=== PATIENT | female | born 1940 | race Caucasian/White ===

== ENCOUNTER 2020-04-12 15:10 | Inpatient (IN) | payer MEDICARE ==
[2020-04-12] VITALS (7 sets, daily range): BP systolic 100–121; BP diastolic 36–59
[~2020-04-12] VITALS: Ht 172.7 cm; Wt 92.5 kg
[~2020-04-12 15:10] MED LIST: ANTIVERT/2525 MG PO; ANTIVERT25 MG; ANTIVERT25 MG PO; ASPIRIN ADULT L81 M1 PO; BISOPROLOL/HCTZ1 TA4 PO; CIPRO250 MG PO; CIPROFLOXACIN500 MG PO; CLONIDINE HCL0.1 MG PO; D3 VITAMIN400 IU/ML; GLYBURIDE5 MG PO; KEFLEX500 MG PO; LABETALOL200 MG PO; LOPID600 MG; MACROBID100 M1 PO; METFORMIN1000 MG; MICRO-K8 MEQ PO; Vibra-Tab100 MG PO; Zofran4 MG PO; [UNRECOGNIZED DRUG - OTHER]
[2020-04-12 15:37] LABS: HEMATOCRIT 21.8 % (37.0-47.0); MEAN CELL VOLUME 118.5 fl (81.0-99.0); MEAN CORPUSCULAR HGB 38.6 pg (27.0-31.0); MEAN CORPUSCULAR HGB CONC 32.6 g/dl (33.0-37.0); MEAN PLATELET VOLUME 9.9 fl (9.6-12.3); PLATELET COUNT AUTOMATED 199 10*3/uL (130-400); RED BLOOD COUNT 1.84 10*6/uL (4.10-5.10); RED CELL DISTRI WIDTH 15.9 % (0-14.5); WHITE BLOOD COUNT 6.5 10*3/uL (4.8-10.8)
[2020-04-12 15:48] LABS: ACT PARTIAL THROMBO TIME 28.5 SECONDS (20.0-32.1)
[2020-04-12 15:53] LABS: BURR CELLS FEW; PLATELET SUFFICIENCY NORMAL (NORMAL); POLYCHROMASIA SLIGHT; SCHISTOCYTES FEW; TOTAL CELLS COUNTED 100 #CELLS
[2020-04-12 15:54] LABS: ALBUMIN 3.4 gm/dl (3.1-4.5); CREATININE 1.25 mg/dL (0.55-1.02); POTASSIUM 3.2 mmol/L (3.5-5.1); ROULEAUX MODERATE; TOTAL PROTEIN 6.8 gm/dL (6.4-8.2)
[2020-04-12 16:06] LABS: TROPONIN I 0.064 ng/ml (<0.045)
--- NOTE | 2020-04-12 16:36 | NUR ---
HOME MEDICATIONS VERIFIED WITH [facility]
[2020-04-12 18:02] LABS: IRON 50 ug/dL (50-170); TOTAL IRON BINDING CAPACITY 346 ug/dl (250-450)
--- NOTE | 2020-04-12 18:30 | NUR ---
The assessment has been completed. MONA CROCKER Time: 1829 A 79 year old FEMALE admitted to under services of KEHINDE SIMON DO. Pt. arrived via ambulance from ER. Chief complaint: VIA EMS FROM HOME FOR C/O OF GEN WEAKNESS AND LIGHTHEADEDNESS. BS 78. . MONA CROCKER
[2020-04-12 18:50] LABS: BILIRUBIN 1+ (NEGATIVE); BLOOD 2+ (NEGATIVE); CLARITY CLOUDY (CLEAR); COLOR YELLOW (YELLOW); GLUCOSE NEGATIVE (NEGATIVE); KETONE NEGATIVE (NEGATIVE); LEUKO ESTERASE 2+ (NEGATIVE); NITRITE NEGATIVE (NEGATIVE); SPECIFIC GRAVITY 1.025 (1.005-1.030); UROBILINOGEN 0.2 E.U./dl (0.2-1.0)
[2020-04-12 18:52] LABS: BACTERIA 4+; MUCOUS 1+; WBC TNTC wbc/hpf (0-5)
--- NOTE | 2020-04-12 19:00 | NUR ---
REPORT RECEIVED, PT LYING IN BED. NO COMPLAINTS VOICED. CALL LIGHT IN REACH
--- NOTE | 2020-04-12 20:00 | NUR ---
IN TO SEE PT. PT IV OUT AND BLEEDING. PT IV INFUSION STOPPED. IV DISCONTINUED. PT REFUSING BSG CHECK AT THIS TIME. NEW IV SITE IN PT RIGHT ARM STARTED BY ASHLIE SMITH AFTER 1 FAILED ATTEMPT. PT IV MAG HOOKED UP AND INFUSING AT THIS TIME. NO COMPLAINTS VOICED. CALL LIGHT IN REACH
--- NOTE | 2020-04-12 20:26 | NUR ---
DR. CHAPA CONTACTED FOR LACTIC OF 2.4 AND TROPONIN OF 0.042.
--- NOTE | 2020-04-12 22:10 | NUR ---
BLOOD INITIATED AT THIS TIME.
--- NOTE | 2020-04-12 23:12 | NUR ---
DR. CHAPA NOTIFIED OF LACTIC ACID 2.7 AND TROPONIN 0.047. ALSO NOTIFIED THAT PER PT IS PEEING FREQUENTLY. NO NEW ORDERS AT THIS TIME. CALL LIGHT IN REACH
[2020-04-13 00:25] VITALS: BP 118/52
--- NOTE | 2020-04-13 00:30 | NUR ---
BLOOD FINISHED AT THIS TIME
[2020-04-13 01:00] VITALS: BP 114/53
[2020-04-13 02:41] LABS: HEMATOCRIT 25.8 % (37.0-47.0); MEAN CORPUSCULAR HGB 36.2 pg (27.0-31.0); MEAN CORPUSCULAR HGB CONC 32.2 g/dl (33.0-37.0); PLATELET COUNT AUTOMATED 198 10*3/uL (130-400); RED BLOOD COUNT 2.29 10*6/uL (4.10-5.10); RED CELL DISTRI WIDTH 20.5 % (0-14.5); WHITE BLOOD COUNT 4.9 10*3/uL (4.8-10.8)
[2020-04-13 03:00] LABS: MEAN CELL VOLUME 112.7 fl (81.0-99.0)
[2020-04-13 03:03] LABS: TOTAL CELLS COUNTED 100 #CELLS
[2020-04-13 03:04] LABS: BURR CELLS MODERATE; PLATELET SUFFICIENCY NORMAL (NORMAL)
--- NOTE | 2020-04-13 03:08 | NUR ---
DR. CHAPA NOTIFIED OF HGB 8.3. NO NEED FOR ANOTHER UNIT OF BLOOD AT THIS TIME.
[2020-04-13 05:57] LABS: HEMATOCRIT 24.8 % (37.0-47.0); MEAN CELL VOLUME 111.2 fl (81.0-99.0); MEAN CORPUSCULAR HGB 35.9 pg (27.0-31.0); MEAN CORPUSCULAR HGB CONC 32.3 g/dl (33.0-37.0); MEAN PLATELET VOLUME 10.4 fl (9.6-12.3); PLATELET COUNT AUTOMATED 201 10*3/uL (130-400); RED BLOOD COUNT 2.23 10*6/uL (4.10-5.10); RED CELL DISTRI WIDTH 20.8 % (0-14.5); WHITE BLOOD COUNT 4.4 10*3/uL (4.8-10.8)
[2020-04-13 06:13] LABS: ALBUMIN 3.1 gm/dl (3.1-4.5); CREATININE 1.1 mg/dL (0.55-1.02); POTASSIUM 3.9 mmol/L (3.5-5.1)
[2020-04-13 06:18] LABS: ACT PARTIAL THROMBO TIME 27.9 SECONDS (20.0-32.1)
[2020-04-13 06:19] LABS: FREE T4 0.76 ng/dl (0.76-1.46); THYROID STIM HORMONE (HS) 0.697 uIU/ml (0.358-4.75); TOTAL PROTEIN 6.4 gm/dL (6.4-8.2)
[2020-04-13 06:43] LABS: TOTAL CELLS COUNTED 100 #CELLS
[2020-04-13 06:44] LABS: PLATELET SUFFICIENCY NORMAL (NORMAL)
[2020-04-13 07:30] LABS: VITAMIN D, 25-HYDROXY 49.6 ng/mL (30-100)
[2020-04-13 08:00] VITALS: BP 108/48
--- NOTE | 2020-04-13 08:47 | NUR ---
Bioinformatics Engineer in to talk to patient. Patient states lives at home with alone. There are 14 steps in the home. Physician: Manuel [facility]: none Patient's level of ADLs: INDEPENDENT Patient has working utilities: yes DME: none Follow-up physician's appointment after d/c: will be made by hospitalist nurse director Does patient want to access PORTAL?: no Discharge plan Patient lives in an apartment building on [address]. She stated although she lives on the first floor, she blair in the garage and goes up about 14 steps to get to her apartment. She doesn't have any DME or oxygen at home. Discharge plan is to return to home, patient denies any needs at this time.. EVANGELISTA VILLELA
--- NOTE | 2020-04-13 10:00 | NUR ---
PT AWAKE, ALERT, & ORIENTED X3. AM CATAPRESS HELD DUE TO BP 108/48. OTHERWISE VSS, LUNGS CLEAR/DIM T/O. ASSISTED UP TO BATHROOM. SKIN INTACT. NO S/S OF DISTRESS. CALL LIGHT WITHIN REACH.
[2020-04-13 12:00] VITALS: BP 111/58
[2020-04-13 16:00] VITALS: BP 106/56
[2020-04-13 20:00] VITALS: BP 138/62
[2020-04-14] VITALS: BP 135/65
--- NOTE | 2020-04-14 02:00 | NUR ---
Patient resting quietly with no c/o discomfort. Respirations easy and regular. Vital signs stable. No overt distress. GISELA MESSER
--- NOTE | 2020-04-14 07:49 | NUR ---
Shift chart check completed.
[2020-04-14 08:00] VITALS: BP 124/55
--- NOTE | 2020-04-14 09:54 | NUR ---
PT UNDERSTANDS AM MEDICATIONS, VITAMIN B ADDED DUE TO LOW LEVEL. PT UNDERSTANDS, NO QUESTIONS AT THIS TIME
--- NOTE | 2020-04-14 09:56 | NUR ---
DR. GARZA IN TO SEE PATIENT
[2020-04-14] MEDS ORDERED: PHARMASSURE V500 MCG PO (10:39)
[2020-04-14] MEDS ORDERED: GLUCOPHAGE1000 MG PO (10:39)
[2020-04-14] MEDS ORDERED: LEVAQUIN750 M1 PO (10:40)
[2020-04-14 12:00] VITALS: BP 120/66
--- NOTE | 2020-04-14 12:20 | NUR ---
Discharge instructions reviewed with patient. Patient receptive and verbalizes understanding. Follow-up care understood Written instructions given to patient. pt understands new rx at pharmacy to pickle processor. iv removed, dressing applied. await friend for pickle processor SHILPI GONZALEZ
== END 2020-04-14 13:30 | disposition home or self-care (01) | DRG 638 ==
LOC: ED 15:10 → EDHOLD 16:12 → 4E 16:36
PROVIDERS: Emergency Medicine; Hospitalist; Student in an Organized Health Care Education/Training Program; ADMIT Internal Medicine
DX: E11.649 Type 2 diabetes mellitus with hypoglycemia without coma (principal); N30.01 Acute cystitis with hematuria; E87.2 Acidosis; I24.8 Other forms of acute ischemic heart disease; N17.0 Acute kidney failure with tubular necrosis; N18.3 Chronic kidney disease, stage 3 (moderate); D53.9 Nutritional anemia, unspecified; E87.6 Hypokalemia; E83.42 Hypomagnesemia; I12.9 Hypertensive chronic kidney disease with stage 1 through stage 4 chronic kidney disease, or unspecified chronic kidney disease; E78.5 Hyperlipidemia, unspecified; H81.10 Benign paroxysmal vertigo, unspecified ear; M17.0 Bilateral primary osteoarthritis of knee; K21.9 Gastro-esophageal reflux disease without esophagitis; E87.8 Other disorders of electrolyte and fluid balance, not elsewhere classified; E83.39 Other disorders of phosphorus metabolism; E53.8 Deficiency of other specified B group vitamins; E66.9 Obesity, unspecified; I95.1 Orthostatic hypotension; E11.22 Type 2 diabetes mellitus with diabetic chronic kidney disease; Z88.0 Allergy status to penicillin; Z88.2 Allergy status to sulfonamides; Z82.49 Family history of ischemic heart disease and other diseases of the circulatory system; Z82.3 Family history of stroke; Z68.30 Body mass index [BMI] 30.0-30.9, adult

== ENCOUNTER 2020-04-15 15:11 | Emergency (ER) | payer MEDICARE ==
[~2020-04-15] VITALS: Ht 172.7 cm; Wt 92.5 kg
[~2020-04-15 15:11] MED LIST changes: +GLUCOPHAGE1000 MG PO; +LEVAQUIN750 M1 PO; +PHARMASSURE V500 MCG PO
[2020-04-15 15:48] LABS: HEMATOCRIT 23.4 % (37.0-47.0); MEAN CELL VOLUME 110.4 fl (81.0-99.0); MEAN CORPUSCULAR HGB 36.3 pg (27.0-31.0); MEAN CORPUSCULAR HGB CONC 32.9 g/dl (33.0-37.0); MEAN PLATELET VOLUME 10.5 fl (9.6-12.3); NUCLEATED RED BLOOD CELL 0.6 % (0.0-0.0); PLATELET COUNT AUTOMATED 195 10*3/uL (130-400); RED BLOOD COUNT 2.12 10*6/uL (4.10-5.10); WHITE BLOOD COUNT 5.1 10*3/uL (4.8-10.8)
[2020-04-15 16:03] LABS: ALBUMIN 3.1 gm/dl (3.1-4.5); CREATININE 1.18 mg/dL (0.55-1.02); POTASSIUM 3.6 mmol/L (3.5-5.1); TOTAL PROTEIN 6.2 gm/dL (6.4-8.2)
[2020-04-15 16:24] LABS: TOTAL CELLS COUNTED 100 #CELLS
[2020-04-15 16:25] LABS: MICROCYTOSIS SLIGHT; PLATELET SUFFICIENCY NORMAL (NORMAL)
[2020-04-15 16:47] VITALS: BP 121/53
== END 2020-04-15 17:30 | disposition home or self-care (01) ==
LOC: ED 15:11
PROVIDERS: Nurse Practitioner Family
DX: Z00.00 Encounter for general adult medical examination without abnormal findings (principal); I10 Essential (primary) hypertension; E11.9 Type 2 diabetes mellitus without complications; E78.00 Pure hypercholesterolemia, unspecified; Z88.0 Allergy status to penicillin; Z88.2 Allergy status to sulfonamides; Z79.899 Other long term (current) drug therapy; Z79.82 Long term (current) use of aspirin

== ENCOUNTER 2020-12-01 18:25 | Emergency (ER) | payer MEDICARE ==
[~2020-12-01] VITALS: Ht 172.7 cm; Wt 81.8 kg
[2020-12-01 18:29] VITALS: BP 141/63
[2020-12-01 18:55] LABS: BILIRUBIN Negative (Negative); BLOOD 2+ (Negative); CLARITY Cloudy (Clear); COLOR Yellow (Yellow); GLUCOSE Negative (Negative); KETONE Trace (Negative); LEUKO ESTERASE 3+ (Negative); NITRITE Positive (Negative); SPECIFIC GRAVITY 1.015 (1.001-1.030); UROBILINOGEN 0.2 E.U./dl (0.0-1.0)
[2020-12-01 19:00] LABS: BASO % 0.2 % (0.0-1.0); EOS # 0.1 10*3/uL (0.0-0.4); EOS % 1.3 % (1.0-4.0); HEMATOCRIT 34.1 % (37.0-47.0); LYMPH # 1.9 10*3/uL (1.3-4.4); LYMPH % 36.1 % (27.0-41.0); MEAN CELL VOLUME 87.9 fl (81.0-99.0); MEAN CORPUSCULAR HGB 27.1 pg (27.0-31.0); MEAN CORPUSCULAR HGB CONC 30.8 g/dl (33.0-37.0); MONO # 0.5 10*3/uL (0.1-1.0); MONO % 9.8 % (3.0-9.0); NEUT # 2.8 10*3/uL (2.3-7.9); NEUT % 52.2 % (47.0-73.0); PLATELET COUNT AUTOMATED 211 10*3/uL (130-400); RED BLOOD COUNT 3.88 10*6/uL (4.10-5.10); RED CELL DISTRI WIDTH 15.3 % (0-14.5); WHITE BLOOD COUNT 5.3 10*3/uL (4.8-10.8)
[2020-12-01 19:05] LABS: RBC 21-30 rbc/hpf (0-2); WBC TNTC wbc/hpf (0-5)
[2020-12-01 19:06] LABS: BACTERIA 3+; YEAST TRACE
[2020-12-01 19:10] LABS: ACT PARTIAL THROMBO TIME 29.3 SECONDS (20.0-32.1)
[2020-12-01 19:15] LABS: ALKALINE PHOSPHATASE 94 U/L (45-117); BUN 21 mg/dl (7-24); CHLORIDE 105 mmol/L (98-107); CREATININE 1.17 mg/dL (0.55-1.02); LIPASE 140 U/L (73-393); POTASSIUM 3.7 mmol/L (3.5-5.1); SGOT/AST 5 IU/L (3-35); SGPT/ALT 10 U/L (12-78); SODIUM 138 mmol/L (136-145); TOTAL PROTEIN 6.5 gm/dL (6.4-8.2)
[2020-12-01 19:19] LABS: TROPONIN I < 0.015 ng/ml (<0.045)
[2020-12-01] MEDS ORDERED: PROVENTIL HFA6.7 GM INH (19:47)
[2020-12-01] MEDS ORDERED: CIPRO500 MG PO (19:47)
[2020-12-01] MEDS ORDERED: PREDNISONE20 M1 PO (19:47)
== END 2020-12-01 21:35 | disposition home or self-care (01) ==
LOC: ED 18:25
PROVIDERS: Physician Assistant
DX: U07.1 COVID-19 (principal); N39.0 Urinary tract infection, site not specified; R19.7 Diarrhea, unspecified; Z90.710 Acquired absence of both cervix and uterus; Z98.890 Other specified postprocedural states; Z79.899 Other long term (current) drug therapy; Z79.82 Long term (current) use of aspirin; Z88.0 Allergy status to penicillin; Z88.1 Allergy status to other antibiotic agents

== ENCOUNTER 2020-12-06 17:20 | Observation (INO) | payer MEDICARE ==
[~2020-12-06] VITALS: Ht 172.7 cm; Wt 83.6 kg
[~2020-12-06 17:20] MED LIST changes: +CIPRO500 MG PO; +PREDNISONE20 M1 PO; +PROVENTIL HFA6.7 GM INH
[2020-12-06 17:27] VITALS: BP 129/49
[2020-12-06 18:19] LABS: EOS # 0.1 10*3/uL (0.0-0.4); EOS % 1.6 % (1.0-4.0); HEMATOCRIT 31.8 % (37.0-47.0); LYMPH # 1.2 10*3/uL (1.3-4.4); LYMPH % 27.2 % (27.0-41.0); MEAN CELL VOLUME 86.6 fl (81.0-99.0); MEAN CORPUSCULAR HGB 26.7 pg (27.0-31.0); MEAN CORPUSCULAR HGB CONC 30.8 g/dl (33.0-37.0); MEAN PLATELET VOLUME 10.6 fl (9.6-12.3); MONO # 0.3 10*3/uL (0.1-1.0); MONO % 6.9 % (3.0-9.0); NEUT # 2.9 10*3/uL (2.3-7.9); NEUT % 63.6 % (47.0-73.0); PLATELET COUNT AUTOMATED 209 10*3/uL (130-400); RED BLOOD COUNT 3.67 10*6/uL (4.10-5.10); RED CELL DISTRI WIDTH 15.4 % (0-14.5); WHITE BLOOD COUNT 4.5 10*3/uL (4.8-10.8)
[2020-12-06 18:36] LABS: ALBUMIN 2.7 gm/dl (3.1-4.5); POTASSIUM 3.7 mmol/L (3.5-5.1); TOTAL PROTEIN 6.8 gm/dL (6.4-8.2)
[2020-12-06 18:43] LABS: CREATININE 1.14 mg/dL (0.55-1.02)
[2020-12-06 19:48] VITALS: BP 119/52
[2020-12-06] MEDS ORDERED: GLUCOPHAGE1000 MG PO (20:31)
[2020-12-06] MEDS ORDERED: POTASSIUM600 MG PO (20:33)
[2020-12-07] VITALS: BP 119/51
[2020-12-07 06:06] LABS: ALBUMIN 2.6 gm/dl (3.1-4.5); POTASSIUM 3.3 mmol/L (3.5-5.1); TOTAL PROTEIN 6.2 gm/dL (6.4-8.2)
[2020-12-07 06:11] LABS: CREATININE 1.11 mg/dL (0.55-1.02); FREE T4 1.02 ng/dl (0.76-1.46); THYROID STIM HORMONE (HS) 1.78 uIU/ml (0.358-4.75)
[2020-12-07 06:13] LABS: BASO % 0.2 % (0.0-1.0); EOS % 0.8 % (1.0-4.0); HEMATOCRIT 31.7 % (37.0-47.0); LYMPH # 2.1 10*3/uL (1.3-4.4); LYMPH % 40.4 % (27.0-41.0); MEAN CELL VOLUME 87.8 fl (81.0-99.0); MEAN CORPUSCULAR HGB 26.6 pg (27.0-31.0); MEAN CORPUSCULAR HGB CONC 30.3 g/dl (33.0-37.0); MEAN PLATELET VOLUME 11.1 fl (9.6-12.3); MONO # 0.4 10*3/uL (0.1-1.0); NEUT # 2.6 10*3/uL (2.3-7.9); PLATELET COUNT AUTOMATED 220 10*3/uL (130-400); RED BLOOD COUNT 3.61 10*6/uL (4.10-5.10); RED CELL DISTRI WIDTH 15.5 % (0-14.5); WHITE BLOOD COUNT 5.2 10*3/uL (4.8-10.8)
[2020-12-07 08:00] VITALS: BP 108/49
[2020-12-07 11:28] VITALS: BP 105/50
== END 2020-12-07 13:30 | disposition home or self-care (01) ==
LOC: ED 17:20 → EDHOLD 19:29 → 4E 19:29
PROVIDERS: Internal Medicine; Student in an Organized Health Care Education/Training Program; ADMIT Internal Medicine; ATTEND Internal Medicine
DX: U07.1 COVID-19 (principal); R53.1 Weakness; N39.0 Urinary tract infection, site not specified; E87.2 Acidosis; D64.9 Anemia, unspecified; E44.0 Moderate protein-calorie malnutrition; E78.5 Hyperlipidemia, unspecified; K21.9 Gastro-esophageal reflux disease without esophagitis; M17.0 Bilateral primary osteoarthritis of knee; E83.42 Hypomagnesemia; E11.65 Type 2 diabetes mellitus with hyperglycemia; D72.819 Decreased white blood cell count, unspecified; E11.22 Type 2 diabetes mellitus with diabetic chronic kidney disease; I12.9 Hypertensive chronic kidney disease with stage 1 through stage 4 chronic kidney disease, or unspecified chronic kidney disease; N18.31 Chronic kidney disease, stage 3a; H81.10 Benign paroxysmal vertigo, unspecified ear; Z90.710 Acquired absence of both cervix and uterus

== ENCOUNTER 2021-02-04 10:28 | Inpatient (IN) | payer MEDICARE ==
[~2021-02-04] VITALS: Ht 172.7 cm; Wt 82.6 kg
[~2021-02-04 10:28] MED LIST changes: +POTASSIUM600 MG PO
[2021-02-04 10:34] VITALS: BP 138/78
[2021-02-04 12:00] VITALS: BP 129/51
[2021-02-04 12:18] LABS: BASO % 0.2 % (0.0-1.0); EOS # 0.1 10*3/uL (0.0-0.4); EOS % 1.2 % (1.0-4.0); LYMPH # 1.3 10*3/uL (1.3-4.4); LYMPH % 22.3 % (27.0-41.0); MEAN CELL VOLUME 84.8 fl (81.0-99.0); MEAN CORPUSCULAR HGB CONC 31.8 g/dl (33.0-37.0); MEAN PLATELET VOLUME 11.3 fl (9.6-12.3); MONO # 0.5 10*3/uL (0.1-1.0); NEUT # 4.1 10*3/uL (2.3-7.9); PLATELET COUNT AUTOMATED 165 10*3/uL (130-400); RED BLOOD COUNT 3.89 10*6/uL (4.10-5.10); RED CELL DISTRI WIDTH 17.9 % (0-14.5)
[2021-02-04 12:33] LABS: INTERNATIONAL NORM RATIO 1.1 (2.0-3.5)
[2021-02-04 12:43] LABS: CREATININE 1.1 mg/dL (0.55-1.02); POTASSIUM 3.6 mmol/L (3.5-5.1); TOTAL PROTEIN 6.4 gm/dL (6.4-8.2)
[2021-02-04 16:45] VITALS: BP 142/68
[2021-02-04 17:20] VITALS: BP 116/59
[2021-02-04 20:00] VITALS: BP 119/54
[2021-02-05] VITALS: BP 97/52
[2021-02-05 06:08] LABS: ALBUMIN 2.8 gm/dl (3.1-4.5); ALKALINE PHOSPHATASE 59 U/L (45-117); BUN 22 mg/dl (7-24); CHLORIDE 104 mmol/L (98-107); CHOLESTEROL 91 mg/dL (<200); CREATININE 0.89 mg/dL (0.55-1.02); POTASSIUM 2.8 mmol/L (3.5-5.1); SGOT/AST 9 IU/L (3-35); SGPT/ALT 7 U/L (12-78); SODIUM 137 mmol/L (136-145); TRIGLYCERIDES 192 mg/dl (<150)
[2021-02-05 06:14] LABS: FREE T4 0.98 ng/dl (0.76-1.46); LDL CHOLESTEROL 39 mg/dL (9-159)
[2021-02-05 06:20] LABS: HEMATOCRIT 33.5 % (37.0-47.0); MEAN CELL VOLUME 84.8 fl (81.0-99.0); MEAN CORPUSCULAR HGB 26.3 pg (27.0-31.0); MEAN PLATELET VOLUME 10.8 fl (9.6-12.3); PLATELET COUNT AUTOMATED 168 10*3/uL (130-400); RED BLOOD COUNT 3.95 10*6/uL (4.10-5.10); RED CELL DISTRI WIDTH 17.8 % (0-14.5); WHITE BLOOD COUNT 6.8 10*3/uL (4.8-10.8)
[2021-02-05 06:35] LABS: ACT PARTIAL THROMBO TIME 32.4 SECONDS (20.0-32.1); INTERNATIONAL NORM RATIO 1.1 (2.0-3.5)
[2021-02-05 07:21] LABS: ATYPICAL LYMPHS 2 % (0-0); BURR CELLS FEW; PLATELET SUFFICIENCY NORMAL (NORMAL); TOTAL CELLS COUNTED 100 #CELLS
[2021-02-05 08:00] VITALS: BP 129/64
[2021-02-05 08:10] LABS: VITAMIN D, 25-HYDROXY 41.8 ng/mL (30-100)
[2021-02-05 12:00] VITALS: BP 121/57
[2021-02-05 16:00] VITALS: BP 136/60
[2021-02-05 20:00] VITALS: BP 123/54
[2021-02-06] VITALS: BP 125/65
[2021-02-06 06:27] LABS: BUN 18 mg/dl (7-24); CHLORIDE 104 mmol/L (98-107); CREATININE 0.96 mg/dL (0.55-1.02); POTASSIUM 3.5 mmol/L (3.5-5.1); SODIUM 138 mmol/L (136-145)
[2021-02-06 08:00] VITALS: BP 135/88
[2021-02-06 12:00] VITALS: BP 135/88
[2021-02-06 16:00] VITALS: BP 109/80
[2021-02-06 20:00] VITALS: BP 103/80
[2021-02-07] VITALS: BP 128/63
[2021-02-07 08:00] VITALS: BP 137/65
[2021-02-07 12:00] VITALS: BP 122/61
[2021-02-07 16:00] VITALS: BP 139/59
[2021-02-07 20:00] VITALS: BP 127/65
[2021-02-08] VITALS: BP 128/64
[2021-02-08 05:48] LABS: BUN 16 mg/dl (7-24)
[2021-02-08 06:21] LABS: BASO % 0.3 % (0.0-1.0); EOS # 0.3 10*3/uL (0.0-0.4); EOS % 5.6 % (1.0-4.0); HEMATOCRIT 29.9 % (37.0-47.0); LYMPH # 2.8 10*3/uL (1.3-4.4); LYMPH % 46.1 % (27.0-41.0); MEAN CELL VOLUME 88.5 fl (81.0-99.0); MEAN CORPUSCULAR HGB 26.9 pg (27.0-31.0); MEAN CORPUSCULAR HGB CONC 30.4 g/dl (33.0-37.0); MEAN PLATELET VOLUME 10.5 fl (9.6-12.3); MONO # 0.6 10*3/uL (0.1-1.0); MONO % 10.1 % (3.0-9.0); NEUT # 2.3 10*3/uL (2.3-7.9); NEUT % 37.4 % (47.0-73.0); PLATELET COUNT AUTOMATED 252 10*3/uL (130-400); RED BLOOD COUNT 3.38 10*6/uL (4.10-5.10); RED CELL DISTRI WIDTH 18.3 % (0-14.5)
[2021-02-08 08:00] VITALS: BP 136/75
[2021-02-08] MEDS ORDERED: CALAMINE LOTIO177 M3 T (09:57)
[2021-02-08] MEDS ORDERED: DOXYCYCLINE100 M3 PO (09:57)
[2021-02-08] MEDS ORDERED: ACYCLOVIR800 MG PO (09:57)
== END 2021-02-08 11:57 | disposition home or self-care (01) | DRG 596 ==
LOC: ED 10:28 → 4E 16:10 → EDHOLD 16:10 → 4E 17:03
PROVIDERS: Emergency Medicine; Internal Medicine; ADMIT Student in an Organized Health Care Education/Training Program; ATTEND Student in an Organized Health Care Education/Training Program
DX: B02.9 Zoster without complications (principal); L03.221 Cellulitis of neck; L03.213 Periorbital cellulitis; E87.2 Acidosis; E44.1 Mild protein-calorie malnutrition; N17.9 Acute kidney failure, unspecified; M17.0 Bilateral primary osteoarthritis of knee; I12.9 Hypertensive chronic kidney disease with stage 1 through stage 4 chronic kidney disease, or unspecified chronic kidney disease; E11.22 Type 2 diabetes mellitus with diabetic chronic kidney disease; N18.31 Chronic kidney disease, stage 3a; D64.9 Anemia, unspecified; E11.65 Type 2 diabetes mellitus with hyperglycemia; E83.42 Hypomagnesemia; R79.82 Elevated C-reactive protein (CRP); E78.5 Hyperlipidemia, unspecified; K21.9 Gastro-esophageal reflux disease without esophagitis; Z88.0 Allergy status to penicillin; Z88.2 Allergy status to sulfonamides; Z90.710 Acquired absence of both cervix and uterus; Z98.891 History of uterine scar from previous surgery; Z80.1 Family history of malignant neoplasm of trachea, bronchus and lung; Z82.49 Family history of ischemic heart disease and other diseases of the circulatory system; Z82.3 Family history of stroke; Z87.440 Personal history of urinary (tract) infections; Z79.899 Other long term (current) drug therapy; Z79.82 Long term (current) use of aspirin; Z68.27 Body mass index [BMI] 27.0-27.9, adult